=== PATIENT | female | born 1945 | race American Indian/Alaskan Native ===

== ENCOUNTER 2019-07-27 21:05 | Emergency (ER) | payer MEDICARE ==
--- NOTE | 2019-07-27 21:15 | Event Note ---
ED Screening Note Date of service: 07/27/19 Time: 21:11 ED Screening Note: 74 y o f presents to Ed cc of throat pain with swallowing and breathing x 1 hour ago having trouble swallowing and spitting up in triage no hx of ayo, copd This initial assessment/diagnostic orders/clinical plan/treatment(s) is/are subject to change based on patients health status, clinical progression and re- assessment by fellow clinical providers in the ED. Further treatment and workup at subsequent clinical providers discretion. Patient/guardian urged not to elope from the ED as their condition may be serious if not clinically assessed and managed. Initial orders include: rapid strep
[2019-07-27] MEDS ORDERED: SODIUM CHLORIDE 0.9% 1000 ML 1,000 ML IV ONE (21:46)
[2019-07-27] MEDS ORDERED: FAMOTIDINE 20 MG/2 ML INJ IV ONE (21:47)
[2019-07-27] MEDS ORDERED: ONDANSETRON 4 MG/2 ML INJ IV ONE (21:47)
--- NOTE | 2019-07-27 22:43 | Emergency Department Report ---
HPI - General Chief Complaint: Dyspnea/Respdistress Time Seen by Provider: 07/27/19 21:33 - HPI HPI: 74-year-old female presents to the emergency department with complaint of some difficulty swallowing and feelings of shortness of breath a fter eating dinner this evening. The patient was eating some tilapia but does not feel that the food got stuck or that there was any fish bones. Patient says that she went home to her daughter's house and tried to vomit. She has not been vomiting but has been spitting up. She says that it is hard to swallow. She denies any chest pain, fever, nausea. Patient is visiting here from [place]. She has a past medical history of hypertension and hyperlipidemia. Denies any tobacco or illicit drug use. ED Past Medical Hx - Past Medical History Previous Medical History?: Yes Hx Hypertension: Yes Additional medical history: High Cholesterol - Surgical History Past Surgical History?: Yes - Social History Smoking Status: Never Smoker Substance Use Type: None - Medications Home Medications: Home Medications Medication Instructions Recorded Confirmed Last Taken Type Famotidine [Pepcid] 20 mg PO BID #20 tablet 07/28/19 Unknown Rx ED Review of Systems ROS: Stated complaint: SHORTNESS OF BREATH Other details as noted in HPI Comment: All other systems reviewed and negative Constitutional: denies: chills, fever Eyes: denies: eye pain, vision change ENT: throat pain. denies: ear pain Respiratory: shortness of breath. denies: wheezing Cardiovascular: denies: chest pain, palpitations Gastrointestinal: vomiting. denies: abdominal pain, nausea Genitourinary: denies: dysuria, discharge Musculoskeletal: denies: back pain, arthralgia Skin: denies: rash, lesions Neurological: denies: headache, weakness Physical Exam - Physical Exam Vital Signs: Vital Signs 07/27/19 07/27/19 21:09 21:38 Temperature 98.9 F 98 F Pulse Rate 106 H 98 H Respiratory 18 20 Rate Blood Pressure 128/93 Blood Pressure 134/74 [Left] O2 Sat by Pulse 98 100 Oximetry Physical Exam: GENERAL: The patient is well-developed well-nourished. HEENT: Normocephalic. Atraumatic. Patient has moist mucous membranes. Oropharynx is clear. No drooling or trismus. EYES: Extraocular motions are intact. Pupils equal react to light bilaterally. NECK: Supple. Trachea is midline. CHEST/LUNGS: Clear to auscultation. There is no respiratory distress noted. HEART/CARDIOVASCULAR: Regular. There is no tachycardia. There is no gallop rub or murmur. ABDOMEN: Abdomen is soft, nontender. Patient has normal bowel sounds. There is no abdominal distention. SKIN: Skin is warm and dry. NEURO: The patient is awake, alert, and oriented. The patient is cooperative. The patient has no focal neurologic deficits. The patient has normal speech and gait. MUSCULOSKELETAL: There is no tenderness or deformity. There is no evidence of acute injury. ED Course Vital Signs 07/27/19 07/27/19 21:09 21:38 Temperature 98.9 F 98 F Pulse Rate 106 H 98 H Respiratory 18 20 Rate Blood Pressure 128/93 Blood Pressure 134/74 [Left] O2 Sat by Pulse 98 100 Oximetry ED Medical Decision Making - Lab Data Result diagrams: 07/27/19 23:07 07/27/19 23:07 - Radiology Data Radiology results: image reviewed interpreted by me: Chest x-ray does not show any pneumonia, pleural effusions, pneumothorax, focal consolidation, or any other acute process. X-ray of the neck does not show any acute pathology. - Medical Decision Making This patient presents to the emergency department with complaint of some pain and difficulty swallowing and what she describes as some shortness of breath after going out to eat this evening. On examination the patient does have some occasional gagging and is spitting into a emesis bag but she does not have any actual vomiting. Heart and lungs sounds are normal auscultation. There are no signs of any respiratory or acute distress. The patient says she was having some shortness of breath but says it is more in the throat. A chest x-ray was done that does not show any pneumonia, focal consolidation, pleural effusions, pneumothorax, or any other acute process. An x-ray of the neck was also done that does not show any obvious stricture, foreign body or any other acute processes well. Her labs were unremarkable including CBC and metabolic panel, except for a very mild hypokalemia with a potassium of 3.4 that was replaced with potassium chloride. The patient was given IV fluid, Pepcid, Zofran and later was given a dose of Decadron. Her vital signs were stable throughout her ED course. She was reevaluated multiple times over multiple hours and the patient says she is feeling greatly improved and back at her baseline. She was able to pass an oral challenge. She has no pain or difficulty with swallowing. She also does not appear to have any other neurological deficits. Patient is visiting from [place] and will follow up with her primary care physician when she returns there on the . In the meantime, the patient will return to the emergency department with any return or worsening of her symptoms, or with any acute distress. - Differential Diagnosis globus sensation, food bolus impaction, esophageal stricture, GERD Critical Care Time: No Critical care attestation.: If time is entered above; I have spent that time in minutes in the direct care of this critically ill patient, excluding procedure time. ED Disposition Clinical Impression: Painful swallowing Difficulty swallowing Qualifiers: Dysphagia type: unspecified Qualified Code(s): R13.10 - Dysphagia, unspecified GERD (gastroesophageal reflux disease) Qualifiers: Esophagitis presence: esophagitis presence not specified Qualified Code(s): K21.9 - Gastro-esophageal reflux disease without esophagitis Disposition: - TO HOME OR SELFCARE Is pt being admited?: No Condition: Stable Instructions: Gastroesophageal Reflux Disease (ED), Dyspnea (ED) Additional Instructions: Please follow-up with your primary care physician as soon as you return to [place]. However, please return to the emergency department immediately with any return of your symptoms, or with any acute distress. Prescriptions: Famotidine [Pepcid] 20 mg PO BID #20 tablet Referrals: PRIMARY CARE [Primary Care Provider] - 3-5 Days Time of Disposition: 00:40
--- NOTE | 2019-07-27 23:28 | XRay Report ---
CHEST 2 VIEWS INDICATION: SOB. COMPARISON: None FINDINGS: Support devices: None. Heart: Within normal limits. Lungs: No acute air space or interstitial disease. Pleura: No significant pleural effusion. No pneumothorax. Additional findings: None. IMPRESSION: 1. No acute findings. Signer Name: Alex Haile MD Signed: 07/27/2019 11:24 PM Workstation Name: [id number]
--- NOTE | 2019-07-27 23:36 | XRay Report ---
CLINICAL DATA: throat pain, difficulty swallowing TECHNICAL DATA: AP and lateral views. FINDINGS: Soft tissues are normal. There is no evidence of compromise of the airway. No evidence of gas bubbles in the retropharyngeal region. The epiglottis and subglottic regions are normal. Degenerative change s cervical spine noted IMPRESSION: Normal examination as noted. Clinical symptoms persist recommend CT for further evaluation Signer Name: Alex Haile MD Signed: 07/27/2019 11:31 PM Workstation Name: [id number]
[2019-07-28] LABS: Basophils % (Auto) 0.6 % (0.0-1.8); Eosinophils # (Auto) 0.1 K/mm3 (0.0-0.4); Eosinophils % (Auto) 1.7 % (0.0-4.3); Lymphocytes # (Auto) 0.9 K/mm3 (1.2-5.4); Lymphocytes % (Auto) 21.6 % (13.4-35.0); Mean Corpuscular HGB Conc 34 % (30-34); Mean Corpuscular Volume 90 fl (79-97); Monocytes # (Auto) 0.3 K/mm3 (0.0-0.8); Monocytes % (Auto) 6.1 % (0.0-7.3); Platelet Count 225 K/mm3 (140-440); Red Blood Count 4.22 M/mm3 (3.65-5.03); Red Cell Distribution Width 13.5 % (13.2-15.2)
[2019-07-28] MEDS ORDERED: dexAMETHasone 4 MG/ML VIAL IV ONE (00:09)
[2019-07-28 00:28] LABS: Alanine Aminotransferase 12 units/L (7-56); BUN/Creatinine Ratio 14; Blood Urea Nitrogen 11 mg/dL (7-17); Calcium 9.7 mg/dL (8.4-10.2); Hemolysis Index 5
[2019-07-28] MEDS ORDERED: POTASSIUM CHLORIDE ER 20 MEQ TAB PO ONE (00:28)
[2019-07-28 01:04] VITALS: BP 108/64
== END 2019-07-28 01:05 | disposition home or self-care (01) ==
LOC: ED 21:05
DX: K21.9 Gastro-esophageal reflux disease without esophagitis (principal); R13.10 Dysphagia, unspecified; I10 Essential (primary) hypertension; Z79.899 Other long term (current) drug therapy
CPT/HCPCS: 36415; 70360; 71046; 80053; 85025; 87116; 87430; 96374; 96375; 99284; J1100; J2405; J7030